=== PATIENT | female | born 1975 | race African-American/Black ===

== ENCOUNTER 2018-02-20 14:27 | Emergency (ER) | payer SELFPAY ==
[~2018-02-20] VITALS: Ht 170.2 cm; Wt 140.0 kg
[2018-02-20 16:21] VITALS: BP 95/76
[2018-02-20 16:32] LABS: BASOPHILS % 1.4 % (0.0-2.0); EOSINOPHILS % 1.1 % (0.0-5.0); HEMATOCRIT. 37.2 % (36.0-48.0); HEMOGLOBIN. 12.1 g/dL (12.0-16.0); LYMPHOCYTES % 33.9 % (20.0-50.0); MEAN CORPUSCULAR HEMOGLOBIN 25.4 pg (28.0-32.0); MEAN CORPUSCULAR VOLUME 78.2 fL (81.0-99.0); MEAN PLATELET VOLUME 8.6 fl (7.4-10.4); MONOCYTES % 5.3 % (2.0-8.0); NEUTROPHILS % 58.3 % (40.0-76.0); PLATELET 362 x1000/uL (130-400); RED BLOOD CELL COUNT 4.76 mill/uL (4.2-5.4); RED CELL DISTRIBUTION WIDTH 14.5 % (11.6-14.6)
[2018-02-20 16:37] LABS: CHLORIDE 102 mEq/L (98-107)
== END 2018-02-20 16:48 | disposition home or self-care (01) ==
LOC: ER 15:17
DX: N61.1 Abscess of the breast and nipple (principal); I10 Essential (primary) hypertension; E11.9 Type 2 diabetes mellitus without complications; F17.200 Nicotine dependence, unspecified, uncomplicated; F12.10 Cannabis abuse, uncomplicated; Z88.5 Allergy status to narcotic agent; Z88.6 Allergy status to analgesic agent; Z98.890 Other specified postprocedural states
CPT/HCPCS: 36415; 80048; 85025; 99284

== ENCOUNTER 2020-06-23 12:04 | Emergency (ER) | payer MEDICAID ==
[~2020-06-23] VITALS: Ht 165.1 cm; Wt 126.0 kg
[2020-06-23 12:27] VITALS: BP 170/97
== END 2020-06-23 17:16 | disposition home or self-care (01) ==
LOC: ER 12:04
DX: T16.1XXA Foreign body in right ear, initial encounter (principal); X58.XXXA Exposure to other specified factors, initial encounter; H60.8X1 Other otitis externa, right ear; E11.9 Type 2 diabetes mellitus without complications; E78.00 Pure hypercholesterolemia, unspecified; I10 Essential (primary) hypertension; F12.10 Cannabis abuse, uncomplicated; Z98.890 Other specified postprocedural states
CPT/HCPCS: 99281

== ENCOUNTER 2023-08-29 14:23 | Emergency (ER) | payer MEDICAID ==
[~2023-08-29] VITALS: Ht 172.7 cm; Wt 100.0 kg
[2023-08-29] MEDS ORDERED: metformin (14:25)
[2023-08-29] MEDS ORDERED: glipizide (14:25)
[2023-08-29 14:26] VITALS: O2SAT 98
[2023-08-29] MEDS ORDERED: SODIUM CHLORIDE 0.9% 1,000 ML IV ONE (16:00)
[2023-08-29] MEDS ORDERED: KETOROLAC 15MG/ML VIAL IV ONE (16:00)
[2023-08-29 16:53] LABS: BASOPHILS % 0.4 % (0.0-2.0); DIFFERENTIAL COMMENT 0; HEMATOCRIT. 36.8 % (36.0-48.0); HEMOGLOBIN. 11.9 g/dL (12.0-16.0); LYMPHOCYTES % 12.4 % (20.0-50.0); MEAN CORPUSCULAR HEMOGLOBIN 25.4 pg (28.0-32.0); MEAN CORPUSCULAR HGB CONC 32.2 g/dL (31.0-37.0); MEAN CORPUSCULAR VOLUME 78.6 fL (81.0-99.0); MEAN PLATELET VOLUME 9.1 fl (7.4-10.4); MONOCYTES % 10.5 % (2.0-8.0); NEUTROPHILS % 76.7 % (40.0-76.0); PLATELET 242 x1000/uL (130-400); RED BLOOD CELL COUNT 4.68 mill/uL (4.2-5.4); RED CELL DISTRIBUTION WIDTH 14.4 % (11.6-14.6); WHITE BLOOD COUNT 12.9 x1000/uL (4.5-11.0)
[2023-08-29 17:03] LABS: INR 0.9; PROTHROMBIN TIME 10.1 sec (9.6-11.0)
[2023-08-29 17:04] LABS: CHLORIDE 94 mEq/L (98-107); INDEX HEMOLYSI 1 (1-3); INDEX ICTERIC 1 (1-4); INDEX LIPEMIC 1 (1-3); POTASSIUM 3.4 mEq/L (3.5-5.1); SODIUM 130 mEq/L (136-145)
[2023-08-29 17:12] LABS: ALANINE AMINOTRANSFERASE 18 IU/L (13-61); ALBUMIN 2.8 g/dL (3.4-5.0); ASPARTATE AMINOTRANSFERASE 11 IU/L (15-37); BILIRUBIN TOTAL 0.4 mg/dL (0.1-1.0); CALCIUM 8.8 mg/dL (8.5-10.1); CARBON DIOXIDE 30 mEq/L (21-32); CREATININE 0.6 mg/dL (0.6-1.3); GLUCOSE 398 mg/dL (70-105); PROTEIN TOTAL 7.4 g/dL (6.0-8.3); UREA NITROGEN BLOOD 19 mg/dL (7-21)
[2023-08-29 17:35] LABS: HCG SCREEN NEGATIVE
[2023-08-29 21:56] LABS: CLARITY URINE CLOUDY (CLEAR); COLOR URINE YELLOW (YELLOW); GLUCOSE URINE 3+ (NEGATIVE); KETONES URINE 2+ (NEGATIVE); LEUKOCYTE ESTERASE URINE NEGATIVE (NEGATIVE); NITRITE URINE NEGATIVE (NEGATIVE); OCCULT BLOOD URINE 2+ (NEGATIVE); PH URINE 5.5 (4.5-8.0); PROTEIN URINE 2+ (NEGATIVE); SPECIFIC GRAVITY URINE 1.033 (1.005-1.030)
[2023-08-29 21:58] LABS: YEAST URINE NONE SEEN
[2023-08-29] MEDS ORDERED: ONDA4TAB50 MT (23:15)
[2023-08-30 00:39] VITALS: BP 152/68; PULSE 71; RESP 21; TEMP 98.8
[2023-08-30 02:43] LABS: WBC URINE TNTC /hpf (0-2)
[2023-08-30 02:45] LABS: BACTERIA URINE 4+; SQUAMOUS EPITHELIAL CELL URINE FEW /lpf (RARE/1+)
== END 2023-08-30 00:41 | disposition home or self-care (01) ==
LOC: ER 14:23
DX: R10.9 Unspecified abdominal pain (principal); F12.10 Cannabis abuse, uncomplicated; I10 Essential (primary) hypertension; E78.00 Pure hypercholesterolemia, unspecified; E11.9 Type 2 diabetes mellitus without complications; Z88.5 Allergy status to narcotic agent; Z98.890 Other specified postprocedural states; Z68.33 Body mass index [BMI] 33.0-33.9, adult
CPT/HCPCS: 80053; 81003; 84703; 83690; 85025; 85610; 87086; 87186; 87077; 36415; 96361; 96374; 99283; J1885; J7030; Z7610 ×3

== ENCOUNTER 2024-06-17 11:49 | Inpatient (IN) | payer MEDICAID ==
[~2024-06-17] VITALS: Ht 167.6 cm; Wt 117.0 kg
[2024-06-17] VITALS (19 sets, daily range): BP systolic 90–152; BP diastolic 49–127; PULSE 111–135; RESP 11–35; TEMP 36.3918–36.418; O2SAT 93–99
[~2024-06-17 11:49] MED LIST: AMLO5TAB88 MT; ASPI-1079 PO; ATOR20TA MT; INSU100I28 SQ; INSU100V43 SQ; METF750T46 PO
[2024-06-17 12:29] LABS: BASOPHILS % 0.7 % (0.0-2.0); DIFFERENTIAL COMMENT 0; HEMATOCRIT. 46.9 % (36.0-48.0); HEMOGLOBIN. 14.8 g/dL (12.0-16.0); MEAN CORPUSCULAR HEMOGLOBIN 23.7 pg (28.0-32.0); MEAN CORPUSCULAR HGB CONC 31.5 g/dL (31.0-37.0); MEAN CORPUSCULAR VOLUME 75.1 fL (81.0-99.0); MONOCYTES % 4.9 % (2.0-8.0); NEUTROPHILS % 84.4 % (40.0-76.0); PLATELET 299 x1000/uL (130-400); RED BLOOD CELL COUNT 6.24 mill/uL (4.2-5.4); RED CELL DISTRIBUTION WIDTH 16.9 % (11.6-14.6); WHITE BLOOD COUNT 23.1 x1000/uL (4.5-11.0)
[2024-06-17] MEDS: ONDANSETRON HCL 4MG/2ML INJ IV ONE (12:32)
[2024-06-17] MEDS: KETOROLAC 15MG/ML VIAL IV ONE (12:32)
[2024-06-17] MEDS: SODIUM CHLORIDE 0.9% 1,000 ML IV ONE ×2 (12:33)
[2024-06-17 12:37] LABS: CHLORIDE 84 mEq/L (98-107); POTASSIUM 4.2 mEq/L (3.5-5.1); SODIUM 125 mEq/L (136-145)
[2024-06-17 12:38] LABS: CALCIUM 10.2 mg/dL (8.7-10.4)
[2024-06-17 12:43] LABS: UREA NITROGEN BLOOD 36 mg/dL (9-23)
[2024-06-17 12:44] LABS: TROPONIN I HIGH SENSITIVITY 30 ng/L (3.0-34)
[2024-06-17 12:45] LABS: ALANINE AMINOTRANSFERASE 15 IU/L (10-49); ALBUMIN 5.1 g/dL (3.2-4.8); ASPARTATE AMINOTRANSFERASE 18 IU/L (<34); BILIRUBIN TOTAL 0.6 mg/dL (0.1-1.0)
[2024-06-17 12:51] LABS: CARBON DIOXIDE 22 mEq/L (21-32)
[2024-06-17 12:52] LABS: CREATININE 1.6 mg/dL (0.6-1.0)
[2024-06-17 12:54] LABS: GLUCOSE 512 mg/dL (70-105)
[2024-06-17] MEDS: SODIUM CHLORIDE 0.9% 1000ML BAG (SEPSIS BOLUS) IV ONE (13:00)
[2024-06-17 13:08] LABS: HCG SCREEN NEGATIVE
[2024-06-17] MEDS ORDERED: BLOOD SUGAR DIAGNOSTIC STRIP TEST PRN (13:15)
[2024-06-17] MEDS ORDERED: DEXTROSE 50% WATER 50ML SYRINGE IV PRN ×2 (13:15→16:15)
[2024-06-17] MEDS ORDERED: INSULIN REGULAR (DRIP) 100 UNITS in SODIUM CHLORIDE 0.9% 99 ML IV SCH (13:15)
[2024-06-17 13:30] LABS: CALCIUM 9.3 mg/dL (8.7-10.4)
[2024-06-17 13:35] LABS: CREATININE 1.4 mg/dL (0.6-1.0)
[2024-06-17 13:59] LABS: BETA HYDROXYBUTYRATE 7.7 mMol/L (0.0-0.3)
[2024-06-17] MEDS: INSULIN REGULAR 100U/100ML PMX 100 ML IV SCH (14:03)
[2024-06-17] MEDS: CEFTRIAXONE 1GM/50ML 50 ML IV ONE (14:03)
[2024-06-17] MEDS: BLOOD SUGAR DIAGNOSTIC STRIP TEST SCH ×2 (14:05→17:01)
[2024-06-17 14:55] LABS: BG BASE EXCESS -4.8 mmol/L (-2.0-3.0); BG CARBOXYHEMOGLOBIN 0.8 % (0.5-1.5); BG DEOXYHEMOGLOBIN 4.7 % (0.0-5.0); BG FRACTION INSPIRED OXYGEN 21; BG HCO3 ACT 19.3 mmol/L (21.0-28.0); BG METHEMOGLOBIN 0.3 % (0.5-1.5); BG OXYGEN SATURATION 95.2 % (94.0-98.0); BG OXYHEMOGLOBIN 94.2 % (94.0-98.0); BG PCO2 33.6 mmHg (32.0-45.0); BG PH 7.377 (7.350-7.450); BG PO2 84.9 mmHg (83.0-108.0); BG SAMPLE SITE RIGHT RADIAL; BG TOTAL HEMOGLOBIN 15.6 g/dL (12.0-16.0); BG VENT MODE ROOM AIR
[2024-06-17] MEDS: AZITHROMYCIN 500MG/250ML 250 ML IV ONE (15:17)
[2024-06-17] MEDS ORDERED: NITROGLYCERIN 0.4MG TABLET SL SL PRN (16:00)
[2024-06-17] MEDS ORDERED: MAGNESIUM/ALUMINUM HYDROXIDE/SIMETHICONE 30ML UDC PO PRN (16:00)
[2024-06-17] MEDS ORDERED: ACETAMINOPHEN 325MG TABLET PO PRN ×2 (16:00)
[2024-06-17] MEDS ORDERED: GUAIFENESIN 200MG/10ML SUGAR FREE UDC PO PRN (16:00)
[2024-06-17] MEDS ORDERED: DOCUSATE SODIUM 100MG CAPSULE PO PRN (16:00)
[2024-06-17 16:29] LABS: CLARITY URINE CLEAR (CLEAR); COLOR URINE YELLOW (YELLOW); GLUCOSE URINE 3+ (NEGATIVE); KETONES URINE 3+ (NEGATIVE); LEUKOCYTE ESTERASE URINE NEGATIVE (NEGATIVE); NITRITE URINE NEGATIVE (NEGATIVE); OCCULT BLOOD URINE TRACE (NEGATIVE); PROTEIN URINE TRACE (NEGATIVE); SPECIFIC GRAVITY URINE 1.031 (1.005-1.030); UROBILINOGEN URINE 0.2 E.U./dL (0.2-1.0)
[2024-06-17] MEDS: NITROGLYCERIN OINT 1GM/INCH UDPKT TD SCH (16:46)
[2024-06-17] MEDS: POTASSIUM CHLORIDE 20MEQ TABLET SR PO NR (16:46)
[2024-06-17] MEDS: NIFEDIPINE XL 60MG TAB PO SCH (16:46)
[2024-06-17 16:51] LABS: BACTERIA URINE NONE SEEN; RBC URINE 0-2 /hpf (0-2); SQUAMOUS EPITHELIAL CELL URINE RARE /lpf (RARE/1+); WBC URINE 0-2 /hpf (0-2)
[2024-06-17] MEDS: LACTATED RINGERS IV NR (16:51)
[2024-06-17 16:52] LABS: *AMPHETAMINES SCREEN URINE NEGATIVE (NEGATIVE); *BARBITURATES SCREEN URINE NEGATIVE (NEGATIVE); *BENZODIAZEPINES SCREEN URINE NEGATIVE (NEGATIVE); *COCAINE SCREEN URINE NEGATIVE (NEGATIVE); CANNABINOID URINE SCREEN PRESUMPTIVE POSITIVE (NEGATIVE); ECSTASY MDMA SCREEN URINE NEGATIVE (NEGATIVE); METHADONE URINE SCREEN NEGATIVE (NEGATIVE); OPIATES URINE SCREEN NEGATIVE (NEGATIVE); PHENCYCLIDINE URINE SCREEN NEGATIVE (NEGATIVE)
[2024-06-17 16:54] LABS: IRON 59 ug/dL (50-170)
[2024-06-17 16:57] LABS: TOTAL IRON BINDING CAPACITY 329 ug/dl (250-425)
[2024-06-17 17:00] LABS: FOLIC ACID (FOLATE) SERUM > 20.00 ng/mL (>5.38)
[2024-06-17 17:01] LABS: T4 FREE 1.52 ng/dL (0.89-1.76); VITAMIN B12 SERUM 912 pg/mL (211-911)
[2024-06-17] MEDS ORDERED: VANCOMYCIN 1,750 MG in SODIUM CHLORIDE 0.9% 500 ML IV SCH (17:30)
[2024-06-17] MEDS: INSULIN LISPRO 100 UNITS/ML SUBCUT SCH ×2 (17:50→18:38)
[2024-06-17] MEDS: LACTATED RINGERS 1,000 ML IV SCH (18:02)
[2024-06-17] MEDS: ENOXAPARIN 30MG/0.3ML SYR SUBCUT SCH (21:00)
[2024-06-17] MEDS ORDERED: ZOLPIDEM TARTRATE 5MG TABLET PO PRN (21:00)
[2024-06-17] MEDS: PIPERACILLIN/TAZO 3.375G/50ML 50 ML IV SCH (21:50)
[2024-06-17] MEDS: INSULIN GLARGINE 100 UNITS/ML SUBCUT SCH (21:51)
[2024-06-17] MEDS: ONDANSETRON HCL 4MG/2ML INJ IV PRN (22:18)
[2024-06-18] VITALS (80 sets, daily range): BP systolic 102–166; BP diastolic 51–101; PULSE 89–132; RESP 13–39; TEMP 36.44736–37.44744; O2SAT 82–100
[2024-06-18] MEDS: KETOROLAC 15MG/ML VIAL IV PRN (02:52)
[2024-06-18 06:03] LABS: BASOPHILS % 0.5 % (0.0-2.0); DIFFERENTIAL COMMENT 0; EOSINOPHILS % 0.1 % (0.0-5.0); HEMOGLOBIN. 12.8 g/dL (12.0-16.0); LYMPHOCYTES % 14.6 % (20.0-50.0); MEAN CORPUSCULAR HEMOGLOBIN 23.5 pg (28.0-32.0); MEAN CORPUSCULAR HGB CONC 31.3 g/dL (31.0-37.0); MEAN CORPUSCULAR VOLUME 74.9 fL (81.0-99.0); MEAN PLATELET VOLUME 10.1 fl (7.4-10.4); MONOCYTES % 6.5 % (2.0-8.0); NEUTROPHILS % 78.3 % (40.0-76.0); PLATELET 219 x1000/uL (130-400); RED BLOOD CELL COUNT 5.48 mill/uL (4.2-5.4); RED CELL DISTRIBUTION WIDTH 16.9 % (11.6-14.6); WHITE BLOOD COUNT 18.3 x1000/uL (4.5-11.0)
[2024-06-18 06:11] LABS: CHLORIDE 97 mEq/L (98-107); POTASSIUM 4.1 mEq/L (3.5-5.1); SODIUM 133 mEq/L (136-145)
[2024-06-18 06:14] LABS: CALCIUM 8.9 mg/dL (8.7-10.4); CARBON DIOXIDE 25 mEq/L (21-32)
[2024-06-18 06:19] LABS: CREATININE 1.1 mg/dL (0.6-1.0); GLUCOSE 228 mg/dL (70-105); UREA NITROGEN BLOOD 27 mg/dL (9-23)
[2024-06-18 06:20] LABS: ALANINE AMINOTRANSFERASE 10 IU/L (10-49); ASPARTATE AMINOTRANSFERASE 17 IU/L (<34)
[2024-06-18 06:21] LABS: ALBUMIN 3.8 g/dL (3.2-4.8)
[2024-06-18 06:22] LABS: BILIRUBIN TOTAL 0.5 mg/dL (0.1-1.0); PROTEIN TOTAL 6.3 g/dL (6.0-8.3)
[2024-06-18] MEDS: PANTOPRAZOLE SODIUM 40 MG/VIAL IV SCH (08:08)
[2024-06-18] MEDS: LACTATED RINGERS 1,000 ML IV ONE (11:22)
[2024-06-18] MEDS: METOPROLOL SUCCINATE 50MG ER TABLET PO SCH (11:42)
[2024-06-18] MEDS: VANCOMYCIN 1250MG in DEXTROSE 5% WATER 250ML IV SCH (18:00)
[2024-06-18] MEDS: IPRATROPIUM/ALBUTEROL 0.5-3(2.5)MG/3ML NEB NEB PRN (18:37)
[2024-06-19] VITALS (43 sets, daily range): BP systolic 129–186; BP diastolic 56–106; PULSE 78–111; RESP 12–29; TEMP 36.28068–37.11408; O2SAT 87–100
[2024-06-19] MEDS: CLONIDINE 0.1MG TABLET PO PRN (01:10)
[2024-06-19 05:50] LABS: HEMATOCRIT 42.3 % (36.0-48.0); HEMOGLOBIN 13.5 g/dL (12.0-16.0); MEAN CORPUSCULAR HEMOGLOBIN 23.8 pg (28.0-32.0); MEAN CORPUSCULAR HGB CONC 31.8 g/dL (31.0-37.0); MEAN CORPUSCULAR VOLUME 74.8 fL (81.0-99.0); PLATELET 213 x1000/uL (130-400); RED BLOOD CELL COUNT 5.65 mill/uL (4.2-5.4); RED CELL DISTRIBUTION WIDTH 16.8 % (11.6-14.6); WHITE BLOOD COUNT 12.6 x1000/uL (4.5-11.0)
[2024-06-19 05:56] LABS: CHLORIDE 100 mEq/L (98-107); POTASSIUM 3.3 mEq/L (3.5-5.1); SODIUM 134 mEq/L (136-145)
[2024-06-19 05:57] LABS: CALCIUM 9.1 mg/dL (8.7-10.4); CARBON DIOXIDE 31 mEq/L (21-32)
[2024-06-19 06:02] LABS: CREATININE 0.8 mg/dL (0.6-1.0); GLUCOSE 183 mg/dL (70-105); UREA NITROGEN BLOOD 16 mg/dL (9-23)
[2024-06-19] MEDS: POTASSIUM CHLORIDE 20MEQ TABLET SR PO NR (21:27)
[2024-06-20 04:00] VITALS: BP 138/59; PULSE 85; RESP 18; TEMP 36.61404; O2SAT 99
[2024-06-20 07:58] LABS: BASOPHILS % 0.7 % (0.0-2.0); DIFFERENTIAL COMMENT 0; HEMATOCRIT. 44.5 % (36.0-48.0); HEMOGLOBIN. 14.1 g/dL (12.0-16.0); MEAN CORPUSCULAR HEMOGLOBIN 23.5 pg (28.0-32.0); MEAN CORPUSCULAR HGB CONC 31.6 g/dL (31.0-37.0); MEAN CORPUSCULAR VOLUME 74.3 fL (81.0-99.0); MEAN PLATELET VOLUME 9.7 fl (7.4-10.4); MONOCYTES % 6.6 % (2.0-8.0); NEUTROPHILS % 45.7 % (40.0-76.0); PLATELET 259 x1000/uL (130-400); RED BLOOD CELL COUNT 5.99 mill/uL (4.2-5.4); RED CELL DISTRIBUTION WIDTH 16.5 % (11.6-14.6); WHITE BLOOD COUNT 13.4 x1000/uL (4.5-11.0)
[2024-06-20 08:00] VITALS: BP 142/77; PULSE 111; RESP 18; TEMP 37.00296; O2SAT 95
[2024-06-20 08:06] LABS: CHLORIDE 97 mEq/L (98-107); POTASSIUM 3.6 mEq/L (3.5-5.1); SODIUM 134 mEq/L (136-145)
[2024-06-20 08:07] LABS: CALCIUM 9.9 mg/dL (8.7-10.4); CARBON DIOXIDE 30 mEq/L (21-32)
[2024-06-20 08:12] LABS: CREATININE 0.7 mg/dL (0.6-1.0); GLUCOSE 152 mg/dL (70-105); UREA NITROGEN BLOOD 10 mg/dL (9-23)
[2024-06-20] MEDS: FAMOTIDINE 20MG/2ML VIAL IV SCH (08:53)
[2024-06-20 12:00] VITALS: BP 132/79; PULSE 81; RESP 20; TEMP 37.00296; O2SAT 98
[2024-06-20] MEDS: VANCOMYCIN 1G PREMIX 200 ML IV SCH (12:48)
[2024-06-20 16:00] VITALS: BP 95/61; PULSE 100; RESP 18; TEMP 36.89184; O2SAT 98
[2024-06-20 20:00] VITALS: BP 122/64; PULSE 84; RESP 18; TEMP 36.89184; O2SAT 99
[2024-06-21] VITALS: BP 166/98; PULSE 104; RESP 18; TEMP 36.50292; O2SAT 97
[2024-06-21 04:00] VITALS: BP 142/76; PULSE 87; RESP 16; TEMP 37.00296; O2SAT 98
[2024-06-21 08:59] VITALS: BP 150/81; PULSE 88; RESP 20; TEMP 36.00288; O2SAT 93
[2024-06-21 12:00] VITALS: BP 168/90; PULSE 83; RESP 20; TEMP 37.16964; O2SAT 97
[2024-06-21 12:16] VITALS: BP 165/90; PULSE 83; RESP 20; TEMP 37.16964; O2SAT 96
[2024-06-21 16:55] VITALS: BP 115/53; PULSE 90; RESP 20; TEMP 37.05852; O2SAT 98
[2024-06-22] VITALS: BP 112/63; PULSE 89; RESP 16; TEMP 36.28068; O2SAT 95
[2024-06-22 04:00] VITALS: BP 118/62; PULSE 76; RESP 16; TEMP 36.114; O2SAT 95
[2024-06-22 06:30] LABS: CARBON DIOXIDE 32 mEq/L (21-32); CHLORIDE 99 mEq/L (98-107); SODIUM 136 mEq/L (136-145)
[2024-06-22 06:32] LABS: CALCIUM 9.3 mg/dL (8.7-10.4)
[2024-06-22 06:36] LABS: CREATININE 1.1 mg/dL (0.6-1.0); GLUCOSE 134 mg/dL (70-105); UREA NITROGEN BLOOD 9 mg/dL (9-23)
[2024-06-22 08:00] VITALS: BP 132/65; PULSE 98; RESP 18; TEMP 36.72516; O2SAT 100
[2024-06-22 08:09] LABS: POTASSIUM 2.8 mEq/L (3.5-5.1)
[2024-06-22] MEDS ORDERED: INSU100I28 SQ (10:50)
[2024-06-22] MEDS ORDERED: INSU100V43 SQ (10:50)
[2024-06-22] MEDS ORDERED: SYRI-218 SQ (10:50)
[2024-06-22] MEDS ORDERED: LIP40 MT (10:50)
[2024-06-22 12:00] VITALS: BP 115/64; PULSE 88; RESP 18; TEMP 36.89184; O2SAT 100
[2024-06-22 12:57] VITALS: BP 115/64; PULSE 88; TEMP 98.4; O2SAT 100
[2024-06-22] MEDS ORDERED: VANCOMYCIN 750MG/150ML (BAXTER) IV NR (21:00)
== END 2024-06-22 14:10 | disposition home or self-care (01) | DRG 720 ==
LOC: ER 11:49 → CVICU 14:09 → EDBEDREQ 14:14 → EDBEDREQSVC 14:14 → EDBEDREQTM 14:14 → 7WST 06-19 09:46
PROVIDERS: ADMIT Internal Medicine; ATTEND Internal Medicine
DX: A41.9 Sepsis, unspecified organism (principal); N17.0 Acute kidney failure with tubular necrosis; E10.10 Type 1 diabetes mellitus with ketoacidosis without coma; D64.9 Anemia, unspecified; Z20.822 Contact with and (suspected) exposure to COVID-19; E88.09 Other disorders of plasma-protein metabolism, not elsewhere classified; E78.00 Pure hypercholesterolemia, unspecified; I10 Essential (primary) hypertension; E66.9 Obesity, unspecified; Z68.41 Body mass index [BMI] 40.0-44.9, adult; Z98.891 History of uterine scar from previous surgery; Z79.4 Long term (current) use of insulin; Z79.899 Other long term (current) drug therapy; Z88.5 Allergy status to narcotic agent; E10.69 Type 1 diabetes mellitus with other specified complication; E87.0 Hyperosmolality and hypernatremia
CPT/HCPCS: 36415; 36600; 71045; 73030; 80048; 80053; 80202; 80305; 81003; 82010; 82375; 82607; 82746; 82805; 82962; 83540; 83550; 83605; 83735; 83930; 84100; 84439; 84443; 84484; 84703; 85025; 85027; 87426; 93005; 93306; 93970; 94640; 99291; J0456; J0696; J1650; J1815; J1885; J2405; J2470; J2543; J3370; J3490; J7030; J7040; J7060; J7120